=== PATIENT | female | born 1960 | race Caucasian/White ===

== ENCOUNTER 2022-10-08 07:58 | Outpatient (CLI) | payer BC, SELFPAY | END 2022-10-08 07:59 | disposition home or self-care (01) | LOC: NFLDREF 10-09 22:10 | PROVIDERS: PCP Family Medicine; Referring Provider Family Medicine; Visit Provider Family Medicine | DX: Z00.00 Encounter for general adult medical examination without abnormal findings (principal); E11.9 Type 2 diabetes mellitus without complications; I10 Essential (primary) hypertension; M54.81 Occipital neuralgia; Z13.6 Encounter for screening for cardiovascular disorders | CPT/HCPCS: 80053; 80061; 82043; 82570 ==

== ENCOUNTER 2022-11-27 15:30 | Outpatient (RCR) | payer BC, SELFPAY | END 2023-03-27 23:59 | disposition home or self-care (01) | PROVIDERS: PCP Family Medicine; Visit Provider Family Medicine | DX: M54.81 Occipital neuralgia (principal); Z51.89 Encounter for other specified aftercare | CPT/HCPCS: 97110; 97140; 97162; T1013 ==

== ENCOUNTER 2023-01-07 15:02 | Outpatient (CLI) | payer BC, SELFPAY ==
--- NOTE | 2023-01-07 15:40 | CRLHL7_ITS ---
For Patients: As a result of the Century Cures Act, medical imaging exams and procedure reports are released immediately into your electronic medical record. You may view this report before your referring provider. If you have questions, please contact your health care provider. BILATERAL SCREENING MAMMOGRAM WITH COMPUTER-AIDED DETECTION AND TOMOSYNTHESIS TECHNIQUE: CC and MLO views were obtained. These mammographic images have been obtained using full-field digital technique. These mammographic images were interpreted with the benefit of computer-aided detection. Breast Tomosynthesis was used in this interpretation. COMPARISON FILM: 01/03/22, 09/14/19. FINDINGS: There are scattered areas of fibroglandular density IMPRESSION: There is no radiographic evidence for malignancy. ASSESSMENT: BI-RADS Category 1: Negative RECOMMENDATION: Routine screening mammogram in 1 year. A lay language report of this examination will be provided to the patient. Randy Cali M.D. Diagnostic/Nuclear Medicine Radiologist [email or web address] CIELO/Dictated by: Randy Cali MD @ 01/08/2023 9:08:00 AM (Electronically Signed)
== END 2023-01-07 15:03 | disposition home or self-care (01) ==
LOC: MAMMO 15:02
PROVIDERS: PCP Family Medicine; Visit Provider Family Medicine
DX: Z12.31 Encounter for screening mammogram for malignant neoplasm of breast (principal)
CPT/HCPCS: 77063; 77067; T1013

== ENCOUNTER 2023-10-06 07:22 | Outpatient (CLI) | payer BC, SELFPAY | END 2023-10-06 07:23 | disposition home or self-care (01) | LOC: NFLDREF 10-08 11:31 | PROVIDERS: PCP Family Medicine; Referring Provider Family Medicine; Visit Provider Family Medicine | DX: E03.9 Hypothyroidism, unspecified (principal); E11.9 Type 2 diabetes mellitus without complications; E78.5 Hyperlipidemia, unspecified; I10 Essential (primary) hypertension; R53.83 Other fatigue; Z79.899 Other long term (current) drug therapy | CPT/HCPCS: 80053; 80061; 82607; 82728; 83540; 84439; 84443 ==

== ENCOUNTER 2023-11-03 10:09 | Outpatient (CLI) | payer BC, SELFPAY ==
--- OUTSIDE RECORDS SUMMARY | 2023-11-03 10:12 | XMS_ITS | Clinical Summary ---
Author Name Unknown Organization [facility] Address [place], [place] [address] Care Team Providers Care Airport Engineer Name Role Phone Pcp, No Primary Care Provider Unavailabl e Allergies Active Allergy Reactions Criticality Noted Date Comments Naproxen GI Upset,Intolerance-Can't Take 01/20 Medications Medication Sig Dispensed Refills Start Date End Date Status ASPIRIN 81 MG TAB take 1 tablet (81mg) by oral route once daily 03/10/2008 Active lancets (ACCU-CHEK FASTCLIX) Test 2-3 times per day. 20 Each prn 05/17/2013 Active insulin needles, disposable, (LITE TOUCH INSULIN PEN NEEDLES) 31 X 5/16 Indications:Type 2 diabetes mellitus with hyperglycemia (HC) For administering insulin at home. For lantus solostar disposable pen device 100 Each 3 02/09/2015 Active Diabetic ShoeIndications:Ty pe 2 diabetes mellitus with hyperglycemia (HC) As directed. 1 Each 0 12/13/2015 Active insulin syringe-needle U-100 (BD INSULIN SYRINGE ULTRA-FINE) 0.3 mL 31 gauge x 15/64 syrgIndications:Ty pe 2 diabetes mellitus without complication, without long-term current use of insulin (HC) As directed. For insulin administration 100 Syringe 12 04/24/2016 Active blood sugar diagnostic (ACCU-CHEK SMARTVIEW TEST STRIP) stripIndications:T ype 2 diabetes mellitus with hyperglycemia, with long-term current use of insulin (HC) Test 2-3 times per day. 100 Each 12 05/08/2016 Active acetaminophen (TYLENOL) 325 mg tablet Take by mouth every 4 hours if needed. Max acetaminophen dose: 4000mg in 24 hrs. 0 09/04/2016 Active glipiZIDE (GLUCOTROL) 10 mg tabletIndications: Type 2 diabetes mellitus without complication, unspecified snf insulin use status Take 1 tablet by mouth 2 times daily before meals. 180 tablet 2 09/04/2016 Active insulin NPH human recomb (NOVOLIN N) 100 unit/mL susp injectionIndicatio ns:Type 2 diabetes mellitus without complication, unspecified snf insulin use status Inject 10 Units subcutaneous every 12 hours. 1 Vial 12 09/04/2016 Active metFORMIN (GLUCOPHAGE) 1,000 mg tabletIndications: Type 2 diabetes mellitus without complication, unspecified snf insulin use status Take 1 tablet by mouth 2 times daily with meals. 180 tablet 2 09/04/2016 Active lisinopril (PRINIVIL; ZESTRIL) 30 mg tabletIndications: HTN (hypertension) Take 1 tablet by mouth once daily. Note dose change 90 tablet 2 09/04/2016 Active Active Problems Problem Noted Date Diagnosed Date Recurrent urinary tract infection 03/16/2016 Colon polyp 12/31/2013 Overview: Colonoscopy 12/2013 polyp repeat in 5 years Cervical back pain with evidence of disc disease 11/23/2013 Type 2 diabetes mellitus wit hout complication, without long-term current use of insulin 08/12/2008 HTN (hypertension) 08/12/2008 Overview: Updated by system to replace inactive record Dysthymic disorder 08/12/2008 Immunizations Name Administration Dates Next Due HepA-HepB (Twinrix) 04/12/2015,03/04/2014,2013 Influenza, IIV3 (Age >=3 years) 03/25/2012 Influenza, IIV4 04/09/2016,04/12/2015,04/06/2014 Tdap 11/23/2013 Family History Medical History Relation Name Comments Diabetes Father Diabetes Mother Other Mother kidney failure Cancer-colon Sister diagnosed at 45 yr Relation Name Status Comments Father Mother kidney failure Sister Social History Tobacco Use Types Packs/Day Years Used Date Smoking Tobacco: Never Smokeless Tobacco: Never Tobacco Cessation:Counseling Given: Yes Alcohol Use Standard Drinks/Week Comments No 0 (1 standard drink = 0.6 oz pur e alcohol) Sex and Gender Information Value Date Recorded Sex Assigned at Not on file Gender Identity Not on file Sexual Orientation Not on file Obstetrics History Para Term AB IAB SAB Ectopic Multiple Livin g Live Births 3 4 Date Outcome GA Total Labor Labor/2nd/3rd Weight Sex Delivery Anes PTL Kayli A1 A5 Name Cl in Last Filed Vital Signs Vital Sign Reading Time Taken Comments Blood Pressure 167/83 06/29/2023 5:54 PM TOOLER Pulse 62 06/29/2023 5:54 PM TOOLER Temperature 36.3 ??C (97.3 ??F) 06/29/2023 5:54 PM CS T Respiratory Rate 18 06/29/2023 5:54 PM TOOLER Oxygen Saturation 98% 06/29/2023 5:54 PM TOOLER Inhaled Oxygen Concentration - - Weight 59.9 kg (132 lb) 06/29/2023 5:53 PM TOOLER Height 149.4 cm (4' 10.82) 04/23/2017 10:16 AM CDT Body Mass Index 26.83 04/23/2017 10:16 AM CDT Plan of Treatment Health Maintenance Due Date Last Done Comments HIV for age 15-65 1973 Hepatitis C screening for ag e 18-79 1976 Zoster (shingles) series for age 50+ (1 of 2) 2008 Depression screening for age 12+ 10/18/2016 10/19/2015, 10/19/2015, 10/19/2015 Mammogram for age 45-75 04/22/2018 04/22/20 17, 04/16/2016, 04/12/2015, Additional history exists BMI (ht and wt on same day) for age 18+ 04/23/2018 04/23/2017, 09/04/2016, 07/04/2016, Additional history exists Colonoscopy through age 75 12/31/201812/31, 12/31/2013, 10/22/2001 Lipids for age 45-75 11/17/2022 11/17/2017, 09/04/2016, 10/19/2015, Additional history exists COVID-19 vaccine series ( season) 2023 08/02/2021, 11/10/2020, 10/14/2020 DEXA/DXA scan for age 65+ 10/26/2023 Pneumococcal series for age 65+ (1 of 1 - PCV) 10/26/2023 Tetanus booster 11/24/2023 11/23/2013 Influenza for age 65+ 03/21/2024 04/09/2016 , 04/12/2015, 04/06/2014, Additional history exists Tdap Completed 11/23/2013 Goals Goal Patient Goal Type Associated Problems Recent Progress Patient-Stated? Author BLOOD PRESSURE-MA INTAINS BP LESS THAN 130/80 Blood Pressure No Tammy Santos NP Procedures Procedure Name Priority Date/Time Associated Diagnosis Comments LIPID PANEL W REFLEX MEASURED LDL Routine 11/17/2017 8:28 AM CDT Type 2 diabetes mellitus without complication, without long-term current use of insulin (HC) XR MAMMO BILAT SCREENING Routine 04/22/2017 3:05 PM CDT Visit for screening mammogram from Last 3 Months or Most Recently Relevant to Health Maintenance Results * (ABNORMAL) LIPID PANEL W REFLEX MEASURED LDL (11/17/2017 8:28 AM CDT) CHOLESTEROL,TOTAL 162 100 - 199 mg/dL 11/17/2017 3:48 PM CDT [facility] TRIGLYCERIDES 163(H) <150 mg/dL 11/17/2017 3:48 PM CDT [facility] HDL CHOLESTEROL 39(L) >40 mg/dL 8 3:48 PM CDT [facility] NON-HDL CHOLESTEROL 123 <145 mg/dl 11/17/2017 3:48 PM CDT [facility] CHOL/HDL RATIO 4.15 <4.50 11/17/2017 3:48 PM CDT [facility] LDL CHOLESTEROL 90 <=130 mg/dL 11/17/2017 3:48 PM CDT [facility] PROVIDER ORDERED STATUS RANDOM 11/17/2017 3:48 PM CDT [facility] Blood BLOOD SPECIMEN / Unknown Venipuncture / Unknown 11/17/2017 8:28 AM CDT 11/17/2017 8:28 AM CDT Porsha Beltret DO CHEMISTRY [facility]AL LAB[facility]ATORY [address] [place] [address], [place] * XR MAMMO BILAT SCREENING (04/22/2017 3:05 PM CDT) Anatomical Region Laterality Modality BREASTS, Breast Left, Breast Right Bilateral Mammography Impressions 04/23/2017 12:29 PM CDT ??There is no radiographic evidence for malignancy. ??Recommend annual mammograms. A lay language report of this examination will be provided to the patient. MAMMOGRAM ASSESSMENT: ??ACR 2 Benign Narrative 04/23/2017 12:29 PM CDT XR MAMMO BILAT SCREENING [[id number]] CLINICAL HISTORY: ??This is an asymptomatic 56 y.o. patient. INDICATION FOR EXAM: Mammogram Screening. TECHNIQUE: CC & MLO views were obtained. ??This digital study was evaluated with the assistance of Computer-Aided Detection. COMPARISON FILMS: Yes 04/16/16 [facility] 04/12/15 [facility] FINDINGS: ??Mammographically, the breast tissue has scattered fibroglandular densities. ??No suspicious masses or microcalcifications. ?? Benign appearing calcifications within both breasts and Intramammary lymph node within right breast. Tammy Deal FLOORWORKER LASTING MAMMO from Last 3 Months or Most Recently Relevant to Health Maintenance Care Teams Airport Engineer Relationship Specialty Start Date End Date Pcp, No . PCP - General 06/26/18
--- NOTE | 2023-11-03 11:38 | W.ANESCHARGE ---
Anesthesia Charges Start Date/Time Anesthesia Start Date: 11/03/23 Anesthesia Start Time: 10:55 Stop Date/Time Anesthesia Stop Date: 11/03/23 Anesthesia Stop Time: 11:36
--- NOTE | 2023-11-03 11:47 | W.ANESCHARGE ---
Anesthesia Charges Start Date/Time Anesthesia Start Date: 11/03/23 Anesthesia Start Time: 10:55 Stop Date/Time Anesthesia Stop Date: 11/03/23 Anesthesia Stop Time: 11:36
== END 2023-11-03 10:10 | disposition home or self-care (01) ==
LOC: OP CLINIC 10:10
PROVIDERS: PCP Family Medicine; Visit Provider Surgery
DX: D50.9 Iron deficiency anemia, unspecified (principal); K44.9 Diaphragmatic hernia without obstruction or gangrene; Z80.0 Family history of malignant neoplasm of digestive organs
CPT/HCPCS: 00731; 00813; 43239; 45378; 45385; 88305; 88341; 88342; T1013; J2704

== ENCOUNTER 2024-01-05 13:45 | Outpatient (CLI) | payer BC, SELFPAY ==
--- OUTSIDE RECORDS SUMMARY | 2024-01-09 19:07 | XMS_ITS | Clinical Summary ---
Author Organization [facility] Address [place], [place] [address] Care Team Providers Care Solution Design And Analysis Manager Name Role Phone Pcp, No Primary Care [...] Type 2 diabetes mellitus without complication, unspecified intermodal customer service insulin use status Take 1 tablet by mouth 2 times daily before meals. 180 tablet 2 09/04/2016 Active insulin NPH human recomb (NOVOLIN N) 100 unit/mL susp injectionIndicatio ns:Type 2 diabetes mellitus without complication, unspecified intermodal customer service insulin use status Inject 10 Units subcutaneous every 12 hours. 1 Vial 12 09/04/2016 Active metFORMIN (GLUCOPHAGE) 1,000 mg tabletIndications: Type 2 diabetes mellitus without complication, unspecified intermodal customer service insulin use status Take 1 tablet by [...] to replace inactive record Dysthymic disorder 08/12/2008 Encounters Date Type Department Care Team Description 11/03/[address] [facility] [phone] Unknown, Doctor from Last 3 Months Immunizations Name Administration Dates Next Due HepA-HepB [...] Outcome GA Total Labor Labor/2nd/3rd Weight Sex Type Anes PTL Kayli A1 A5 Name Clin Last Filed Vital Signs Vital Sign Reading Time Taken Comments Blood Pressure 167/83 06/29/2023 5:54 PM PARACHUTE LINE TIER Pulse 62 06/29/2023 5:54 PM [employer] TIER Temperature 36.3 ??C (97.3 ??F) 06/29/2023 5:54 PM CS T Respiratory Rate 18 06/29/2023 5:54 PM [employer] TIER Oxygen Saturation 98% 06/29/2023 5:54 PM [employer]ACH[employer] TIER Inhaled Oxygen Concentration - - Weight 59.9 kg (132 lb) 06/29/2023 5:53 PM [employer]ACHUTE [employer] TIER Height 149.4 cm (4' 10.82) 04/23/2017 10:16 [...] Procedure Name Priority Date/Time Associated Diagnosis Comments LAB TRACKING EVENT Routine 11/03/2023 11 :03 AM CDT PATH TISSUE EXAM Routine 11/03/2023 11:0 3 AM CDT LIPID PANEL W REFLEX MEASURED LDL Routine 11/17/2017 8:28 AM CDT Type 2 diabetes mellitus without complication, without long-term current use of insulin (HC) XR MAMMO BILAT SCREENING Routine 04/22/2017 3:05 PM CDT Visit for screening mammogram from Last 3 Months or Most Recently Relevant to Health Maintenance Results * LAB TRACKING EVENT (11/03/2023 11:03 AM CDT) Other (Other) Client Collect / Unknown 11/03/2023 11:03 AM CDT 11/03/2023 8:46 PM CDT Doctor Unknown LAB BILL ONLY [facility] [address] [place] [id number] * PATH TISSUE EXAM (11/03/2023 11:03 AM CDT) Case Report Pathology Report ?Case: [id number] ? Authorizing Provider: ??Unknown, Doctor ?Collected: ? 11/03/2023 1103 ? Ordering Location: ? [facility] ?Received: ?11/03/2023 2107 ? Pathologist: ? Randy Hutchins MD ? Specimen: ?Stomach Biopsy ? 4 2:52 PM CDT [facility] Final Diagnosis A) STOMACH, BIOPSY: 1. 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 Negative for Helicobacter (Helicobacter immunohistochemistry negative) 3. Negative for dysplasia 4 2:52 PM CDT [facility] Comment The histologic findings are consistent with autoimmune gastritis. The autoimmune mechanisms in this type of atrophic gastritis are directed against gastric body (corpus) glands, resulting in progressive hypochlorhydria and hypergastrinemia and decreased secretion of intrinsic factor. This form of gastritis is associated with an increased risk of gastric adenocarcinoma and gastric carcinoid tumors; however, management of these risks remains uncertain and needs to be individualized. Dysplasia, when present, further increases the risk of gastric adenocarcinoma. These patients are also at increased risk for pernicious anemia and iron deficiency anemia. 4 2:52 PM CDT [facility] Clinical Information Ms. Reyes is a 63 y.o. with suspected upper gastrointestinal bleeding and patient with unexplained iron deficiency anemia. Upper endoscopy was essentially normal. 4 2:52 PM CDT [facility] Gross Description A) Received in formalin are 3 oliver mucosal fragments averaging 3 mm in greatest dimension, which are entirely submitted in one cassette. It is labeled with the patient's name and designated random stomach. Martine Zhao 11/03/2023 9:08 PM 4 2:52 PM CDT [facility] Microscopic Description The final diagnosis is based on microscopic examination of appropriate sections of all specimens. A) The findings include: ?? Sampling: ?Antrum and body ?? Distribution: ?Body ?? Activity: ?Mild ?? Chronic inflammation: ??Moderate ?? Helicobacter: ?Absent ?? Intestinal metaplasia: Mild ?? Atrophy: ? Mild ?? Pyloric metaplasia: ?Marked ?? ECL Cell hyperplasia: ??Mild Immunohistochemistry for gastrin and chromogranin were reviewed to evaluate for pyloric metaplasia and ECL cell hyperplasia respectively. 4 2:52 PM CDT [facility] Additional Information Interpreted at [facility] - [address] [facility] [[email or web address]] [address] [address] 4 2:52 PM CDT [facility] Other (Stomach Biopsy) 11/03/2023 11:03 AM CDT 11/03/2023 9:07 PM CDT Doctor Unknown PATHOLOGY/CYTOLOGY [facility] [address] [place] [address], * (ABNORMAL) LIPID PANEL W REFLEX MEASURED LDL (11/17/2017 8:28 AM CDT) CHOLESTEROL,TOTAL 162 100 - 199 mg/dL 11/17/2017 3:48 PM CDT [facility] TRIGLYCERIDES 163(H) <150 mg/dL 11/17/2017 3:48 PM CDT [facility] HDL CHOLESTEROL 39(L) >40 mg/dL 8 3:48 PM CDT [facility] NON-HDL CHOLESTEROL 123 <145 mg/dl 11/17/2017 3:48 PM CDT [facility] CHOL/HDL RATIO 4.15 <4.50 11/17/2017 3:48 PM CDT [facility] LDL CHOLESTEROL 90 <=130 mg/dL 11/17/2017 3:48 PM CDT [facility] TR[facility] PROVIDER ORDERED STATUS RANDOM 11/17/2017 3:48 PM CDT [facility] Blood BLOOD SPECIMEN / Unknown Venipuncture / Unknown 11/17/2017 8:28 AM CDT 11/17/2017 8:28 AM CDT Porsha Beltret DO CHEMISTRY Performing Organization Address City/State/[facility] Co de Phone Number [facility] [address] [place] [address], [place] * XR MAMMO BILAT SCREENING (04/22/2017 3:05 PM CDT) Anatomical Region Laterality Modality BREASTS, Breast Left, Breast Right Bilateral Mammography Impressions 04/23/2017 12:29 PM CDT ??There is no radiographic evidence for malignancy. ??Recommend annual mammograms. A lay language report of this examination will be provided to the patient. MAMMOGRAM ASSESSMENT: ??ACR 2 Benign Narrative 04/23/2017 12:29 PM CDT XR MAMMO BILAT SCREENING [[id number]] CLINICAL HISTORY: ??This is an asymptomatic 56 y.o. patient. INDICATION FOR EXAM: Mammogram Screening. TECHNIQUE: CC & MLO views were obtained. ??This digital study was evaluated with the assistance of Computer-Aided Detection. COMPARISON FILMS: Yes 04/16/16 [facility] 04/12/15 [facility] [place] FINDINGS: ??Mammographically, the breast tissue has scattered fibroglandular densities. ??No suspicious masses or microcalcifications. ?? Benign appearing calcifications within both breasts and Intramammary lymph node within right breast. Tammy Deal [employer] CAR [employer]IVER MAMMO from Last 3 Months or Most Recently Relevant to Health Maintenance Care Teams Solution Design And Analysis Manager Relationship Specialty Start Date End Date Pcp, No . PCP - General 06/26/18
--- OUTSIDE RECORDS SUMMARY | 2024-01-09 19:07 | XMS_ITS | Continuity of Care Document ---
Author Organization [facility] Address [address] [address] [place] [address] Phone Care Team Providers Care Gauge And Instrument Inspector Name Role Phone Doug Dunlap MD Unavailable Unavailabl e Allergies, Adverse Reactions, Alerts Substance Reaction Status Criticality No Known Allergies Active No Inform ation Medications Medication Instructions Dosage Effective Dates (start - stop) Status Comments Injectafer 50 mg iron/mL intravenous solution Administer 2 doses of 750mg Injectafer by IV route at least 7 days apart over at least 15 minutes - Active metformin 1,000 mg tablet take 1 tablet by oral route 2 times every day with morning and evening meals 1000 MG - Active lisinopril 10 mg tablet take 1 tablet by oral route every day 10 MG - Active VITAMIN B-12 (unknown strength) take 3 tablets every day Not Available - Active Jardiance 10 mg tablet take 1 tablet by oral route every day in the morning 10 MG - Active amlodipine 5 mg tablet take 1 tablet by oral route every day 5 MG - Active Humalog KwikPen (U-100) Insulin 100 unit/mL subcutaneous inject by subcutaneous route once per prescriber's instructions. Insulin dosing requires individualization.; takes 8 units 2 times every day Not Available - Active Vazalore 81 mg capsule take 1 capsule by oral route every day 81 MG - Active simvastatin 10 mg tablet take 1 tablet by oral route every day in the evening 10 MG - Active Procedures Procedure Date Injectafer, 1 mg Iv Infus Therap/dx-by Phys; To Injectafer, 1 mg Iv Infus Therap/dx-by Phys; To Office Cons New/estab Mod Routine Serum Collection Advance Directives Directive Yes / No Effective Date File Name No Information Encounters Encounter Description Practice Location Reason(s) For Visit Diagnoses Date Provider Providers Copied on Encounter [facility], [address] [address], [place], [place], [id number], [place] tel:[phone] [facility] No Information 4 Flakito Camacho. [facility], [address], [id number] , [place]. tel: [phone] [facility], [address] [address], [place], [place], [address], [place] tel: [phone] [facility] Iron deficiency anemia, unspecified 4 Sheela Moss. [address] [facility], [address], [id number] , [place]. tel: [phone] Referring Provider: Referral Self, USE FOR SELF REFERRALS. [facility], [address] [address], [place], [place], [id number], [place] tel:[phone] [facility] Iron deficiency anemia, unspecified 4 Bassam Sanon. [address] [facility], [address], [id number] , [place]. tel: [phone] [facility], [address] [address], [place], [place], [address], [place] tel:[phone] [facility] Iron deficiency anemia, unspecified 4 Prateek Elmore. [address] [facility], [address], [id number] , [place]. tel: [phone] Referring Provider: Referral Self, USE FOR SELF REFERRALS. [facility], [address] [address], [place], [place], [address], [place] tel:[phone] [facility] Iron deficiency anemia, unspecified iron deficiency anemia type 4 Bassam Sanon. [address] [facility], [facility] [address], [place], [place], [id number] , [place]. [phone] [facility], [address] [address], [place], [place], [address], [place] [phone] [place] [facility] deficiency anemia, unspecified iron deficiency anemia typeAutoimmune gastritis 4 Bassam Sanon. [address] [facility], [facility] [address], [place], [place], [address] , [place]. [phone] Office Cons New/estab Mod [facility], [address] [address], [place], [place], [address], [place] [phone] [place] [facility] Symptoms or Concerns (chief complaint) Autoimmune gastritisIron deficiency anemia, unspecified iron deficiency anemia type 4 Bassam Sanon. [address] [facility], [facility] [address], [place], [place], [address] , [place]. [phone] Referring Provider: Lilia Benitez MD, [address] [place], [address]. tel:[phone] [facility], [address] [address], [place], [place], [address], [place] [phone] [facility] No Information 4 Flakito Camacho. [address] [facility], [facility] [address], [place], [place], [address] , [place]. [phone] Family History Family Member Type Diagnosis Age At Onset No Information Immunizations Vaccine Date Status Comments Afluria Qd administered Note: [facility] bi-directional interface ; Source: Other Registry SARS-COV-2 (COVID-19) vaccin e, mRNA, spike protein, LNP, preservative free, 30 mcg/0.3mL dose administered Note: [facility] bi-direct ional interface ; Source: Other Registry Seasonal, quadrivalent, recombinant, injectable influenza vaccine, preservative free administered Note: [facility] bi-direct ional interface ; Source: Other Registry SARS-COV-2 (COVID-19) vaccin e, mRNA, spike protein, LNP, preservative free, 30 mcg/0.3mL dose administered Note: [facility] bi-direct ional interface ; Source: Other Registry SARS-COV-2 (COVID-19) vaccin e, mRNA, spike protein, LNP, preservative free, 30 mcg/0.3mL dose administered Note: [facility] bi-direct ional interface ; Source: Other Registry zoster vaccine recombinant administered N ote: [facility] bi-directional interface ; Source: Other Registry Seasonal, quadrivalent, recombinant, injectable influenza vaccine, preservative free administered Note: [facility] bi-direct ional interface ; Source: Other Registry zoster vaccine recombinant administered N ote: [facility] bi-directional interface ; Source: Other Registry Pneumovax 23 administered Note: [facility] bi-d irectional interface ; Source: Other Registry Influenza administered Note: [facility] bi-d irectional interface ; Source: Other Registry measles, mumps and rubella v irus vaccine administered Note: [facility] bi-direct ional interface ; Source: Other Registry tetanus toxoid, reduced diphtheria toxoid, and acellular pertussis vaccine, adsorbed administered Note: [facility] b i-directional interface ; Source: Other Registry varicella virus vaccine administered Note : [facility] bi-directional interface ; Source: Other Registry Afluria Qd administered Note: [facility] bi-directional interface ; Source: Other Registry Twinrix administered Note: [facility] bi-d irectional interface ; Source: Other Registry Afluria Qd administered Note: [facility] bi-directional interface ; Source: Other Registry Afluria Qd administered Note: [facility] bi-directional interface ; Source: Other Registry Twinrix administered Note: [facility] bi-d irectional interface ; Source: Other Registry Twinrix administered Note: [facility] bi-d irectional interface ; Source: Other Registry tetanus toxoid, reduced diphtheria toxoid, and acellular pertussis vaccine, adsorbed administered Note: [facility] b i-directional interface ; Source: Other Registry influenza virus vaccine, unspecified formulation administered Note: [facility] bi-di rectional interface ; Source: Other Registry Influenza, seasonal, injectable administe red Note: [facility] bi- directional interface ; Source: Other Registry tetanus toxoid, reduced diphtheria toxoid, and acellular pertussis vaccine, adsorbed administered Note: [facility] b i-directional interface ; Source: Other Registry Influenza, seasonal, injectable administe red Note: [facility] bi- directional interface ; Source: Other Registry Payers Payer name Insurance type Covered alliance party ID Authoriza tibao(s) [facility] [id number] Social History Type Description Quantity Date Captured Comments Alcohol Use Details Unknown Caffeine Use Details Unknown Tobacco Use Status No Information Smoking Status No Information Sex Female Chief Complaint And Reason For Visit No Information Reason For Referral Reason For Referral No Information Plan Of Treatment Date Type Action Status Referral Ordered: Iron/TIBC Appointment date/timeframe: 01/26/2024 ordered Referral Ordered: HGB, Whole Blood Appointment date/timeframe: 01/26/2024 ordered Referral Ordered: Administer 2 doses of 750mg Injectafer by IV route at least 7 days apart over at least 15 minutes ordered Appointment Idania Pugh BOOKED Appointment Idania Pugh BOOKED History Of Present Illness Encounter Date Complaint History Of Prese nt Illness GI Symptoms or Concerns I had th e pleasure of seeing Idania Verma today in clinic for consultation at the request of Dr Lilia Benitez for evaluation of right upper quadrant abdominal pain.Patient is here with her daughter and a sales process manager.Patient is a pleasant 63yo F with recent diagnosis of anemia and autoimmune gastritis who presents for consultation and second opinion. Per patient and records, She was recently diagnosed with iron-deficiency anemia and vitamin B12 deficiency. She subsequently had an upper endoscopy and colonoscopy in October 2023 which was remarkable for autoimmune gastritis. H pylori test was negative and she did not have any dysplasia on random stomach biopsies. Her colonoscopy was otherwise unremarkable. She subsequently follow-up with her physician at [facility] regarding her diagnosis. She was told that given her EGD findings, she is at increased risk for gastric cancer or carcinoid carcinomas. She was also started on iron supplementation with IV iron and oral vitamin B12. Currently, she states that she has symptoms of indigestion and bloating whenever she eats spicy foods, milk and heavy foods including meat and fatty foods. Occasionally, she would have nausea sensation as well. She denies any GI bleeding, weight loss, changes in bowel habits. She does have family history of colon cancer in her sister and also says that her mother had hx of gastric cancer. No tobacco, alcohol or illicit drug use. Functional Status Date Functional Assessmen t No Information Instructions Date Instruction Additional Infor patsy It was a pleasure me eting you today, as we discussed in clinic: We will plan to obtain some labs today to further evaluate your autoimmune gastritis and anemia. If your iron and vitamin B12 levels are still low. We will plan for you get infusions.You will need a repeat upper endoscopy in 2-3 years and a colonoscopy in 5 years. Follow up in clinic in 2-3 months. Related to Autoimmune gastritis Assessments Type Assessment Date No Information Patient Care Teams Name Effective Dates (start - stop) Status Members No Information
== END 2024-01-05 13:46 | disposition home or self-care (01) ==
LOC: NFLDREF 01-09 19:06
PROVIDERS: PCP Family Medicine; Referring Provider Family Medicine; Visit Provider Family Medicine
DX: D50.9 Iron deficiency anemia, unspecified (principal); I10 Essential (primary) hypertension; R79.89 Other specified abnormal findings of blood chemistry; D51.9 Vitamin B12 deficiency anemia, unspecified
CPT/HCPCS: 80053; 82607; 82728; 83540; 83550; 84443

== ENCOUNTER 2024-04-09 07:35 | Outpatient (CLI) | payer BC, SELFPAY ==
--- OUTSIDE RECORDS SUMMARY | 2024-04-09 07:37 | XMS_ITS | Continuity of Care Document ---
Author Organization [facility] Address [address] [address] [place] [address] Phone Care Team Providers Care Finish Remover Name Role Phone Bassam RUANO, Fab Unavailable Unavailable Allergies, Adverse Reactions, Alerts Substance Reaction Status Criticality lactose Active No Information Medications Medication Instructions Dosage Effective Dates (start [...] once per prescriber's instructions. Insulin dosing requires individualization .; takes 8 units 2 times every day Not Available - Active Vazalore 81 mg capsule take 1 capsule by oral route every day 81 MG - Active simvastatin 10 mg tablet take 1 tablet by oral route every day in the evening 10 MG - Active nitrofurantoin macrocrystal 100 mg capsule take 1 capsule by oral route every 12 hours for 7 days with food 100 MG - No Longer Active Procedures Procedure Date Offic/outpt E&m Estab Mod-hi 2 Routine Serum Collection Routine Serum Collection Injectafer, 1 mg Iv Infus Therap/dx-by Phys; To Injectafer, 1 mg Iv Infus Therap/dx-by Phys; To Office Cons New/estab Mod Routine Serum Collection Advance Directives Directive Yes / No Effective Date File Name No Information Encounters Encounter Description Practice Location Reason(s) For Visit Diagnoses Date Provider Providers Copied on Encounter [facility], [address] [address], [place], [id number], [place] tel:[phone] [facility] No Information 4 Bassam Sanon. [address] [place] [address], [place] [address], [facility], [place], [id number] , [place]. tel:[phone] Offic/outpt E&m Estab Mod-hi 2 [facility], [address] [address], [place], [id number], [place] tel:[phone] [facility] GI Symptoms or Concerns (chief complaint) Autoimmune gastritisIron deficiency anemia, unspecifiedIrregula r bowel habitsDysuria 4 Bassam Sanon. [address] [facility], [facility] [address], [place], [place], [address] , [place]. tel:[phone] Referring Provider: Referral Self, USE FOR SELF REFERRALS. [facility], [address] [address], [place], [id number], [place] tel:[phone] [facility] No Information 4 Bassam Sanon. [address] [facility], [facility] [address], [place], [place], [address] , [place]. tel:[phone] [facility], [address] [address], [place], [place], [address], [place] tel:[phone] [facility] Iron deficiency anemia, unspecified 4 Sheela Moss. [address] [facility], [address], [place], [place], [id number] , [place]. tel: [phone] Referring Provider: Referral Self, USE FOR SELF REFERRALS. [facility], [address] [address], [place], [place], [address], [place] tel:[phone] [facility] [place] Iron deficiency anemia, unspecified 4 Sheela Moss. [address] [facility], [address], [place], [place], [address] , [place]. tel: [phone] Referring Provider: Referral Self, USE FOR SELF REFERRALS. [facility], [address] [address], [place], [place], [address], [place] tel:[phone] [facility] Iron deficiency anemia, unspecified 4 Bassam Sanon. [address] [facility], [address], [place], [place], [address] , [place]. tel: [phone] [facility], [address] [address], [place], [address], [place] tel:[phone] [facility] Iron deficiency anemia, unspecified 4 Prateek Elmore. [address] [facility], [address], [place], [place], [address] , [place]. tel: [phone] Referring Provider: Referral Self, USE FOR SELF REFERRALS. [facility], [address] [address], [place], [address], [place] tel:[phone] [facility] [place] Iron deficiency anemia, unspecified iron deficiency anemia type 4 Bassam Sanon. [address] [facility], [address], [place], [place], [address] , [place]. tel: [phone] [facility], [address] [address], [place], [address], [place] tel:[phone] [facility] Iron deficiency anemia, unspecified iron deficiency anemia typeAutoimmune gastritis 4 Bassam Sanon. [address] [facility], [facility] [address], [place], [place], [address] , [place]. [phone] Office Cons New/estab Mod [facility], [address] [address], [place], [address], [place] tel:[phone] [facility] GI Symptoms or Concerns (chief complaint) Autoimmune gastritisIron deficiency anemia, unspecified iron deficiency anemia type 4 Bassam Sanon. [address] [facility], [address], [place], [place], [address] , [place]. [phone] Referring Provider: Lilia Benitez MD, [address] [place] [address], [address]. tel:[phone] [facility], [address] [address], [place], [address], [place] tel:[phone] [facility] No Information 4 Flakito Camacho. [address] [facility], [address], [place], [place], [address] , [place]. [phone] Family History Family Member Type Diagnosis Age At Onset Sister Problem Cancer, colon Father Problem Diabetes mellitus Mother Problem Diabetes mellitus Immunizations Vaccine Date Status Comments Afluria Qd administered Note: [facility] bi-directional interface ; Source: Other Registry SARS-COV-2 (COVID-19) vaccin e, mRNA, spike protein, LNP, preservative free, 30 mcg/0.3mL dose administered Note: [facility] bi-direct ional interface ; Source: Other Registry Influenza, recombinant, quadrivalent, injectable, preservative free administered Note: [facility] bi-direct ional interface ; Source: Other Registry Seasonal, quadrivalent, recombinant, injectable influenza vaccine, preservative free administered Note: [facility] bi-direct ional interface ; Source: Other Registry SARS-COV-2 (COVID-19) vaccin e, mRNA, spike protein, LNP, preservative free, 30 mcg/0.3mL dose administered Note: [facility] bi-direct ional interface ; Source: Other Registry SARS-COV-2 (COVID-19) vaccin e, mRNA, spike protein, LNP, preservative free, 30 mcg/0.3mL dose administered Note: [facility] bi-direct ional interface ; Source: Other Registry Influenza, recombinant, quadrivalent, injectable, preservative free administered Note: [facility] bi-direct ional [...] rectional interface ; Source: Other Registry Influenza, split virus, trivalent, injectable, contains preservative administered Note: [facility] bi-direct ional interface ; Source: Other Registry Influenza, seasonal, injectable administe red Note: [facility] bi- directional interface ; Source: Other Registry tetanus toxoid, reduced diphtheria toxoid, and acellular pertussis vaccine, adsorbed administered Note: [facility] b i-directional interface ; Source: Other Registry Influenza, split virus, trivalent, injectable, contains preservative administered Note: [facility] bi-direct ional interface ; Source: Other Registry Influenza, seasonal, injectable administe red Note: [facility] bi- directional interface ; Source: Other Registry Payers Payer name Insurance type Covered green party ID Authoriza tion(s) [facility] [id number] Social History Type Description Quantity Date Captured [...] apart over at least 15 minutes ordered History Of Present Illness Encounter Date Complaint History Of Prese nt Illness GI Symptoms or Concerns Idania M. Eric Verma is a pleasant 63-year-old female with history of hypertension, diabetes, autoimmune gastritis, iron deficiency anemia who presents to clinic today for follow-up.She is accompanied by a wolf hunter today.I initially saw patient in November 2019 for for diagnosis of autoimmune gastritis and anemia. She had just had an upper endoscopy and colonoscopy in October which showed autoimmune gastritis with negative H. pylori, and otherwise unremarkable colonoscopy. Labs at last clinic visit showed positive antiparietal cell antibody, borderline low hemoglobin at 11.1, borderline low iron levels and low iron saturation. She was subsequently given IV Injectafer and repeat labs in January showed improvement in both hemoglobin level and iron levels.Today, she reports that she is feeling well but does report having irregular bowel habits. She reports that sometimes after meals, she would have intermittent stomach aches and also loose to watery bowel movements. There are also days where she feels constipated. She denies any GI bleeding, weight loss, nausea or vomiting. In the last few days, she has also developed symptoms of urinary burning and frequency. She denies any fevers, chills, flank pain or hematuria. She denies any prior urinary tract infections. She does have family history of colon cancer in her sister and mother with history of gastric cancer. She denies any NSAID use, tobacco, alcohol or illicit drug use.I spent about 20 minutes of the visit for face to face with pt and 10 minutes for ordering tests and dictation. -2023 GI Symptoms or Concerns I had th e pleasure of seeing Idania Verma today in clinic for consultation at the request of Dr Lilia Benitez for evaluation of right upper quadrant abdominal pain.Patient is here with her daughter and a wolf hunter.Patient is a pleasant 63yo F with recent [...] She subsequently follow-up with her physician at [facility] regarding her diagnosis. She was told that [...] Assessmen t No Information Instructions Date Instruction Adalid Reyr patsy It was a pleasure me eting you today, as we discussed in clinic:We will check an urinalysis for urinary tract infection given you are having dysuria symptoms.I would also like to check your iron levels and blood counts again today.For your irregular bowel habits, please try fiber supplement such as Metamucil or Citrucel. You can take them once per day to help regulate your bowels.Follow-up in clinic in 3 to 4 months. Related to Autoimmune gastritis It was a pleasure me eting you [...]
--- OUTSIDE RECORDS SUMMARY | 2024-04-09 07:37 | XMS_ITS | Clinical Summary ---
Author Organization [facility] Address [place], [place] [address] Care Team Providers Care Manager Of Digital Name Role Phone Pcp, No Primary Care [...] Type 2 diabetes mellitus without complication, unspecified intermediate insulin use status Take 1 tablet by mouth 2 times daily before meals. 180 tablet 2 09/04/2016 Active insulin NPH human recomb (NOVOLIN N) 100 unit/mL susp injectionIndicatio ns:Type 2 diabetes mellitus without complication, unspecified intermediate insulin use status Inject 10 Units subcutaneous every 12 hours. 1 Vial 12 09/04/2016 Active metFORMIN (GLUCOPHAGE) 1,000 mg tabletIndications: Type 2 diabetes mellitus without complication, unspecified keno terminal operator insulin use status Take 1 tablet by mouth 2 times daily with meals. 180 tablet 2 09/04/2016 Active lisinopril (PRINIVIL; ZESTRIL) 30 mg tabletIndications: HTN (hypertension) Take 1 tablet by mouth once daily. Note dose change 90 tablet 2 09/04/2016 Active Active Problems Problem Noted Date Diagnosed Date Recurrent urinary tract infection 03/16/2016 Colon polyp 12/31/2013 Overview (12/31/2013): Colonoscopy 12/2013 polyp repeat in 5 years Cervical back pain with evidence of disc disease 11/23/2013 Type 2 diabetes mellitus wit hout complication, without long-term current use of insulin 08/12/2008 HTN (hypertension) 08/12/2008 Overview (10/03/2009): Updated by system to replace inactive record [...] Comments Blood Pressure 167/83 06/29/2023 5:54 PM CLOSET ORGANIZER Pulse 62 06/29/2023 5:54 PM CLOSET ORGANIZER Temperature 36.3 ??C (97.3 ??F) 06/29/2023 5:54 PM CS T Respiratory Rate 18 06/29/2023 5:54 PM CLOSET ORGANIZER Oxygen Saturation 98% 06/29/2023 5:54 PM CLOSET ORGANIZER Inhaled Oxygen Concentration - - Weight 59.9 kg (132 lb) 06/29/2023 5:53 PM CLOSET ORGANIZER Height 149.4 cm (4' 10.82) 04/23/2017 10:16 [...] 11/17/2022 11/17/2017, 09/04/2016, 10/19/2015, Additional history exists DEXA/DXA scan for age 65+ 10/26/2023 Pneumococcal series for age 65+ (1 of 1 - PCV) 10/26/2023 Tetanus booster 11/24/2023 11/23/2013 COVID-19 vaccine series ( season) 2024 08/02/2021, 11/10/2020, 10/14/2020 Influenza for age 65+ 03/21/2024 04/09/2016 , [...] - 199 mg/dL 11/17/2017 3:48 PM CDT [facility] TRIGLYCERIDES 163(H) <150 mg/dL 11/17/2017 3:48 PM CDT [facility] HDL CHOLESTEROL 39(L) >40 mg/dL 8 3:48 PM CDT [facility] NON-HDL CHOLESTEROL 123 <145 mg/dl 11/17/2017 3:48 PM CDT [facility] CHOL/HDL RATIO 4.15 <4.50 11/17/2017 3:48 PM CDT [facility] LDL CHOLESTEROL 90 <=130 mg/dL 11/17/2017 3:48 PM CDT [facility] PROVIDER ORDERED STATUS RANDOM 11/17/2017 3:48 PM CDT [facility] Blood BLOOD SPECIMEN / Unknown Venipuncture / Unknown 11/17/2017 8:28 AM CDT 11/17/2017 8:28 AM CDT Porsha Turner DO CHEMISTRY [facility] [address] [place] [address], [place] * XR MAMMO BILAT SCREENING (04/22/2017 3:05 PM CDT) Anatomical Region Laterality Modality BREASTS, Breast Left, Breast Right Bilateral Mammography Impressions 04/23/2017 12:29 PM CDT ??There is no radiographic evidence for malignancy. ??Recommend annual mammograms. A lay language report of this examination will be provided to the patient. MAMMOGRAM ASSESSMENT: ??ACR 2 Benign Narrative 04/23/2017 12:29 PM CDT XR MAMMO BILAT SCREENING [[id number]] CLINICAL HISTORY: ??This is an asymptomatic 56 y.o. patient. INDICATION FOR EXAM: Mammogram Screening. TECHNIQUE: CC & MLO views were obtained. ??This digital study was evaluated with the assistance of Computer-Aided Detection. COMPARISON FILMS: Yes 04/16/16 [facility] 04/12/15 [facility] FINDINGS: ??Mammographically, the breast tissue has scattered fibroglandular densities. ??No suspicious masses or microcalcifications. ?? Benign appearing calcifications within both breasts and Intramammary lymph node within right breast. Tammy Deal MUD MIXER MAMMO from Last 3 Months or Most Recently Relevant to Health Maintenance Care Teams Manager Of Digital Relationship Specialty Start Date End Date Pcp, No . PCP - General 06/26/18
== END 2024-04-09 07:36 | disposition home or self-care (01) ==
LOC: NFLDREF 07:36
PROVIDERS: PCP Family Medicine; Visit Provider Family Medicine
DX: R39.9 Unspecified symptoms and signs involving the genitourinary system (principal)
CPT/HCPCS: 87086

== ENCOUNTER 2024-07-05 07:35 | Outpatient (CLI) | payer BC, SELFPAY | END 2024-07-05 07:36 | disposition home or self-care (01) | LOC: NFLDREF 18:14 | PROVIDERS: PCP Family Medicine; Referring Provider Family Medicine; Visit Provider Family Medicine | DX: I10 Essential (primary) hypertension (principal); E11.29 Type 2 diabetes mellitus with other diabetic kidney complication; R80.9 Proteinuria, unspecified; Z79.4 Long term (current) use of insulin | CPT/HCPCS: 80053; 82043; 82570 ==

== ENCOUNTER 2024-09-29 14:51 | Outpatient (CLI) | payer BC, SELFPAY ==
--- NOTE | 2024-09-29 15:00 | CRLHL7_ITS ---
For Patients: As a result of the Century Cures Act, medical imaging exams and procedure reports are released immediately into your electronic medical record. You may view this report before your referring provider. If you have questions, please contact your health care provider. BILATERAL SCREENING MAMMOGRAM WITH COMPUTER-AIDED DETECTION AND TOMOSYNTHESIS TECHNIQUE: CC and MLO views were obtained. These mammographic images have been obtained using full-field digital technique. These mammographic images were interpreted with the benefit of computer-aided detection. Breast Tomosynthesis was used in this interpretation. COMPARISON FILM: 01/07/23, 01/03/22, 09/14/19. FINDINGS: There are scattered areas of fibroglandular density. IMPRESSION: There is no radiographic evidence for malignancy. ASSESSMENT: BI-RADS Category 2: Benign RECOMMENDATION: Routine screening mammogram in 1 year. A lay language report of this examination will be provided to the patient. Sohail Briscoe M.D. Diagnostic Radiologist [email or web address] SP/Dictated by: Sohail Briscoe MD @ 09/30/2024 8:28:00 AM (Electronically Signed)
--- NOTE | 2024-09-29 15:30 | CRLHL7_ITS ---
For Patients: As a result of the Century Cures Act, medical imaging exams and procedure reports are released immediately into your electronic medical record. You may view this report before your referring provider. If you have questions, please contact your health care provider. XR DXA BONE MINERAL DENSITY (BMD) Current height (in): 59.0. Weight (lb): 128.0. Menopause age: 43. Ethnicity: White. Reason for exam: Asymptomatic menopausal state. 1. Have you had a previous hip or vertebral fracture? No. 2. Have you had any fractures during your adult life which did not result from significant trauma (e.g., auto accident)? No. 3. Did either of your parents have a hip fracture? No. 4. Do you smoke? No. 5. Have you ever taken Glucocorticoids? No. 6. Do you have rheumatoid arthritis? No. 7. Do you have secondary osteoporosis? No. 8. Do you drink 3 or more alcoholic drinks per day? No. 9. Are you being treated for osteoporosis? No. 10. Have you ever taken any of the following medications: Actonel, Evista, Fosamax, Miacalcin, Reclast, Boniva, Forteo, HRT (i.e. estrogen/hormone therapy), Protelos, Prolia, Vitamin D, Calcium, other ??? please specify. ANSWER: No. 11. Do you have any of the following medical conditions: Anorexia or bulimia, asthma or emphysema, end stage renal disease, hyperparathyroidism, any seizure disorders, cancer, inflammatory bowel diseases, hysterectomy, other ??? please specify. ANSWER: Yes, hysterectomy. 12. What was your maximum height (inches)? 59. 13. Do you perform weight bearing exercise regularly? Yes. 14. Do you regularly consume dairy products? Yes. 15. Do you drink caffeinated beverages? Yes. 16. At what age did your period start? 14. 17. Are you premenopausal? No. 18. How many full-term pregnancies have you had? 3. 19. Have you ever missed your period for more than 6 months in a row (not including or menopause)? No. TECHNIQUE: Bone mineral density study was performed using the [employer]. FINDINGS: The results of the study expressed as bone mineral density (BMD) are as follows: Lumbar spine L1 to L3: BMD: 0.962 g/cm2. T-score: -0.5. Z-score: 1.3 Neck Left: BMD: 1.005 g/cm2. T-score: 1.4. Z-score: 3.0 Right: BMD: 0.992 g/cm2. T-score: 1.3. Z-score: 2.8 Total Left: BMD: 1.138 g/cm2. T-score: 1.6. Z-score: 2.9 Right: BMD: 1.193 g/cm2. T-score: 2.1. Z-score: 3.3 IMPRESSION: Normal bone density. Sohail Briscoe M.D. Diagnostic Radiologist [email or web address] Transcribed: 10:33 am DW/Dictated by: Sohail Briscoe MD @ 09/30/2024 8:42:00 AM (Electronically Signed)
== END 2024-09-29 14:52 | disposition home or self-care (01) ==
LOC: MAMMO 14:52
PROVIDERS: PCP Family Medicine; Visit Provider Family Medicine
DX: Z12.31 Encounter for screening mammogram for malignant neoplasm of breast (principal); Z78.0 Asymptomatic menopausal state
CPT/HCPCS: 77063; 77067; 77080; T1013

== ENCOUNTER 2024-10-11 07:28 | Outpatient (CLI) | payer BC, SELFPAY | END 2024-10-11 07:29 | disposition home or self-care (01) | LOC: NFLDREF 10-12 05:34 | PROVIDERS: PCP Family Medicine; Referring Provider Family Medicine; Visit Provider Family Medicine | DX: I10 Essential (primary) hypertension (principal); D51.9 Vitamin B12 deficiency anemia, unspecified; D50.9 Iron deficiency anemia, unspecified; E78.5 Hyperlipidemia, unspecified; E11.29 Type 2 diabetes mellitus with other diabetic kidney complication; R80.9 Proteinuria, unspecified; Z79.4 Long term (current) use of insulin | CPT/HCPCS: 80053; 80061; 82043; 82570; 82607 ==

== ENCOUNTER 2024-12-07 15:45 | Outpatient (RCR) | payer BC, SELFPAY ==
--- NOTE | 2024-11-16 17:06 | PT.OPEX ---
PT [place] Outpatient Eval PT [facility] Outpatient Eval Start: 11/16/24 15:39 Freq: Status: Active Protocol: Document 11/16/24 15:40 [facility] (Rec: 11/16/24 16:59 [facility] [id number]) E-signed By Jonathon Costa, PT Physical Therapy Outpatient Evaluation Insurance Information Insurance Name Blue [employer] Insurance Information/Comments [facility] Medical Diagnosis chronic upper back pain Imaging Report Information none Referring MD Dr. Michaela Benitez Subjective Preferred Name Lina Emerson presents with right upper neck pain that extends down her right shoulder and mid back. It started ~2 months ago. It may be related to the work she does during which she repeatedly reaches overhead to retrieve objects. About two months ago at work, they had her start working intermittently in the [employer] area which requires faster movements with overhead reaching and heavier items. Her pain started after that time. She reports occasional tingling into her right elbow. 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 Pt is right handed. 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 [facility]: repeated overhead reach, lift/carry, up to 25 lbs Objective Other/Pertinent Objective Posture: AROM: Cervical: Flexion: WNL * R neck/shoulder pain Extension: 60 deg * R neck/ shoulderl Sidebend : R 45 / L 40 * stretch pain R Rotation: R 70 * / L 70 (less pain R) UE: R shoulder AROM grossly WNL but with end range pain/stiffness R shoulder R shoulder strength: grossly 4 -5/10, mild pain with each movement resisted testing Special tests: R shoulder Impingement: + for Neers and H -K Palpation: cervical segmental mobility testing - mild hypomobility but non painful + TTP right u trap, medial scap border Functional Test Performed & Score overhead reach: + pain right shoulder reach out to side: + pain right shoulder Assessment Assessment/Impression 64 year old female presents with right neck/shoulder/ scapular pain x 2 months, onset after she started working occasionally in the [employer] room at [facility]. This room requires faster and repetitive overhead reach and carrying heavier loads, up to 25 lbs. Idania demonstrates fairly strong right shoulder w/ MMT but mild discomfort with testing in each direction. Cervical AROM is mildly limited into ext and sidebend, but no c/o radiculopathy/ paraesthesias into right UE. Impingement testing reproduced pain, but it appeared to be more related to shoulder stretching. At this time, I suspect Idania' s pain is related to daily repetitive overhead reach and lifting with her right UE causing soft tissue/muscle strain on her right side. I do not suspect RTC tear or neck injury. Idania responded positively to initial PT session of skilled manual therapy. I recommend cont skilled PT for HEP progression and continued skilled PT along with body mechanics and postural education. I recommend that Idania be provided a medical note exempting her from working in the [employer] room as this appears to be the cause of her current right sided neck/ shoulder/upper back symptoms. 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) with right neck /shoulder pain max of 4/10 Coordination/Communication With Referral Source Treatment Plan/Direct Interventions Manual Therapy,Neuromuscular Re-ed,Self-Care/Home Management,Therapeutic Activities,Therapeutic Exercises Direct Interventions Clarification STM to right neck/shoulder/ Comments scapula mm, progressive postural strengthening Frequency/Duration ~1x/week for 6-8 weeks Patient Will Be Discharged From Therapy Independent w/HEP, Independently Progressing Evaluation Billing Untimed Code Treatment Minutes 30 Complexity Moderate Certification Information Initial Certification Date 11/16/24 Ending Certification Date 02/08/25 Provider Signature Required Yes Provider Signature Shows Agreement With POC & Medical Necessity Physician NPI Number Write NPI# Here Physician Comment/Change : Physician Signature & Date Requested Please Sign/Date Here
== END 2025-04-06 23:59 | disposition home or self-care (01) ==
PROVIDERS: PCP Family Medicine; Visit Provider Family Medicine
DX: M54.9 Dorsalgia, unspecified (principal); G89.29 Other chronic pain; M25.511 Pain in right shoulder; M54.2 Cervicalgia; Z51.89 Encounter for other specified aftercare
CPT/HCPCS: 97110; 97140; 97162; 97530; T1013

== ENCOUNTER 2024-12-28 16:27 | Outpatient (CLI) | payer BC, SELFPAY | END 2024-12-28 16:28 | disposition home or self-care (01) | PROVIDERS: PCP Family Medicine | DX: R30.0 Dysuria (principal); R81 Glycosuria; N89.8 Other specified noninflammatory disorders of vagina | CPT/HCPCS: 83036 ==

== ENCOUNTER 2024-12-29 15:18 | Outpatient (CLI) | payer BC, SELFPAY | END 2024-12-29 15:19 | disposition home or self-care (01) | LOC: NFLDREF 15:20 | PROVIDERS: PCP Family Medicine; Visit Provider Family Medicine | DX: R30.0 Dysuria (principal) | CPT/HCPCS: 87086 ==

== ENCOUNTER 2025-05-19 06:03 | Emergency (ER) | payer BC, SELFPAY ==
--- OUTSIDE RECORDS SUMMARY | 2025-05-19 06:06 | XMS_ITS | Clinical Summary ---
Author Organization [facility] Address [address] [place] [id number] Care Team Providers Care Aerospace Project Manager Name Role Phone Pcp, No Primary Care Provider Unavailabl e Allergies Active Allergy Reactions Criticality Noted Date Comments Naproxen GI Upset,Intolerance-Can't Take 01/20 Medications ASPIRIN 81 MG TAB take 1 tablet (81mg) by oral route once daily 03/10/20 08 Active lancets (ACCU-CHEK FASTCLIX) Test 2-3 times per day. 20 Each prn 05/17/20 13 Active insulin needles, disposable, (LITE TOUCH INSULIN PEN NEEDLES) 31 X 5/16 Indications:Type 2 diabetes mellitus with hyperglycemia (HC) For administering insulin at home. For lantus solostar disposable pen device 100 Each 3 02/10/20 15 Active Diabetic ShoeIndications:T ype 2 diabetes mellitus with hyperglycemia (HC) As directed. 1 Each 0 12/13/19 16 Active insulin syringe-needle U-100 (BD INSULIN SYRINGE ULTRA-FINE) 0.3 mL 31 gauge x 15/64 syrgIndications:T ype 2 diabetes mellitus without complication, without long-term current use of insulin (HC) As directed. For insulin administration 100 Syringe 12 04/24/20 16 Active blood sugar diagnostic (ACCU-CHEK SMARTVIEW TEST STRIP) stripIndications: Type 2 diabetes mellitus with hyperglycemia, with long-term current use of insulin (HC) Test 2-3 times per day. 100 Each 12 05/08/20 16 Active acetaminophen (TYLENOL) 325 mg tablet Take by mouth every 4 hours if needed. Max acetaminophen dose: 4000mg in 24 hrs. 0 09/04/19 17 Active glipiZIDE (GLUCOTROL) 10 mg tabletIndications :Type 2 diabetes mellitus without complication, unspecified fpc insulin use status (HC) Take 1 tablet by mouth 2 times daily before meals. 180 tablet 2 09/04/19 17 Active insulin NPH human recomb (NOVOLIN N) 100 unit/mL susp injectionIndicati ons:Type 2 diabetes mellitus without complication, unspecified fpc insulin use status (HC) Inject 10 Units subcutaneous every 12 hours. 1 Vial 12 09/04/19 17 Active metFORMIN (GLUCOPHAGE) 1,000 mg tabletIndications :Type 2 diabetes mellitus without complication, unspecified long term care administrator insulin use status (HC) Take 1 tablet by mouth 2 times daily with meals. 180 tablet 2 09/04/19 17 Active lisinopril (PRINIVIL; ZESTRIL) 30 mg tabletIndications :HTN (hypertension) Take 1 tablet by mouth once daily. Note dose change 90 tablet 2 09/04/19 17 Active Active Problems Problem Noted Date Diagnosed [...] replace inactive record Dysthymic disorder 08/12/2008 Immunizations Immunization Administration Dates Next Due HepA-HepB (Twinrix) 04/12/2015,03/04/2014,2013 [...] drink = 0.6 oz pur e alcohol) Comments No Sex and Gender Information Value Date Recorded Sex Assigned at Not on file Legal Sex Female 5:45 AM DIRECTOR PROJECT MANAGEMENT Gender Identity Not on file Sexual Orientation Not on file Obstetrics History Para Term AB IAB SAB Ectopic Multiple Livin g Live Births 3 4 Date Outcome GA Total Labor Labor/2nd/3rd Weight Sex Type Anes PTL Kayli A1 A5 Name Clin Last Filed Vital Signs Vital Sign Reading Time Taken Comments Blood Pressure 167/83 06/29/2023 5:54 PM DIRECTOR PROJECT MANAGEMENT Pulse 62 06/29/2023 5:54 PM DIRECTOR PROJECT MANAGEMENT Temperature 36.3 C (97.3 F) 06/29/2023 5:54 PM DIRECTOR PROJECT MANAGEMENT Respiratory Rate 18 06/29/2023 5:54 PM DIRECTOR PROJECT MANAGEMENT Oxygen Saturation 98% 06/29/2023 5:54 PM DIRECTOR PROJECT MANAGEMENT Inhaled Oxygen Concentration - - Weight 59.9 kg (132 lb) 06/29/2023 5:53 PM DIRECTOR PROJECT MANAGEMENT Height 149.4 cm (4' 10.82) 04/23/2017 10:16 AM CDT Body Mass Index 26.83 04/23/2017 10:16 AM CDT Plan of Treatment Health Maintenance Due Date Last Done Comments Hepatitis C screening for ag e 18-79 1976 Pneumococcal series for age 50+ (1 of 2 - PCV) 1977 Zoster (shingles) series for age 50+ (1 [...] exists DEXA/DXA scan for age 65+ 10/26/2023 Tetanus booster 11/24/2023 11/23/2013 Influenza Vaccine (#1) 2025 6, 04/12/2015, 04/06/2014, Additional history exists RSV vaccine for adults or (1 - 1-dose 75+ series) 2033 Hepatitis B series for 19+ Completed 04/12, 03/04/2014, 11/23/2013 Goals Goal Patient Goal Type Associated [...] - 199 mg/dL 11/17/2017 3:[address] [facility] TRIGLYCERIDES 163(H) <150 mg/dL 11/17/2017 3:48 PM CDT [facility] HDL CHOLESTEROL 39(L) >40 mg/dL 8 3:[address] [facility] NON-HDL CHOLESTEROL 123 <145 mg/dl 11/17/2017 3:48 PM CDT [facility] CHOL/HDL RATIO 4.15 <4.50 11/17/2017 3:[address] [facility] LDL CHOLESTEROL 90 <=130 mg/dL 11/17/2017 3:48 PM CDT [facility] PROVIDER ORDERED STATUS RANDOM 11/17/2017 3:48 PM CDT [facility] Blood BLOOD SPECIMEN / Unknown Venipuncture / Unknown 11/17/2017 8:28 AM CDT 11/17/2017 8:28 AM CDT us Porsha Turner DO CHEMISTRY Final Resul t [facility] [address] [place] [address], [place] * XR MAMMO BILAT SCREENING (04/22/2017 3:05 PM CDT) Anatomical Region Laterality Modality BREASTS, Breast Left, Breast Right Bilateral Mammography Impressions 04/23/2017 12:29 PM CDT There is no radiographic evidence for malignancy. Recommend annual mammograms. A lay language report of this examination will be provided to the patient. MAMMOGRAM ASSESSMENT: ACR 2 Benign Narrative 04/23/2017 12:29 PM CDT XR MAMMO BILAT SCREENING [[id number]] CLINICAL HISTORY: This is an asymptomatic 56 y.o. patient. INDICATION FOR EXAM: Mammogram Screening. TECHNIQUE: CC & MLO views were obtained. This digital study was evaluated with the assistance of Computer-Aided Detection. COMPARISON FILMS: Yes 04/16/16 [facility] 04/12/15 [facility] FINDINGS: Mammographically, the breast tissue has scattered fibroglandular densities. No suspicious masses or microcalcifications. Benign appearing calcifications within both breasts and Intramammary lymph node within right breast. us Tammy Deal COMBAT ENGINEER MAMMO F inal Result from Last 3 Months or Most Recently Relevant to Health Maintenance Insurance [facility] NON-[place]-ITS [facility] * Guarantor: [employer] Account Type Relation to Patient Date of Phone Billing Address [facility] [address] ATT[address] KITTY BURNS [address] [place] [id number] Care Teams Aerospace Project Manager Relationship Specialty Start Date End Date Pcp, No . PCP - General 06/26/18
[2025-05-19 06:40] VITALS: BP 182/81; PULSE 64; RESP 18; TEMP 36.7; O2SAT 98; BMI 25.0
--- NOTE | 2025-05-19 07:06 | ED_ITS ---
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 Patient reports that last night around 7:00 p.m. she was trying to help her grandson large toe walk. While playing with her grandson she actually tripped over standard and fell. Patient reports that she fell forward and hit her head on the coffee table. Patient reports that she may have lost consciousness for short period of time, patient is not on chronic anticoagulation. Patient complains of head pain as well as neck pain that is worse on the right side. Patient reports unable to sleep due to the discomfort. Last took Tylenol around 1:30 a.m.. Denies any vision changes, weakness, dizziness, chest pain, shortness comfort, paresthesias, no other complaints. Related Data Previous Rx's ?Medication ?Instructions ?Recorded blood sugar diagnostic (OneTouch #100 ea 10/08/22 Ultra Test strips) lancets 28 gauge (Acti-Willi #100 ea 01/07/24 Lancets) pen needle, diabetic 32 gauge x #1,200 ea 01/07/24 (BD Ultra-Fine Cynthia Pen Needle) amlodipine 5 mg tablet 5 mg PO DAILY #90 tabs 10/12 cyanocobalamin (vitamin B-12) 3,000 mcg (3 x 1,000 mcg ) PO QDAY 10/12/24 1,000 mcg tablet (Vitamin B-12) #270 tabs empagliflozin 10 mg tablet 10 mg PO QAM #90 tabs 10/12 (Jardiance) insulin lispro 100 unit/mL 10 unit (0.1 mL) subcut BID #15 mL 10/12/24 subcutaneous pen lisinopril 40 mg tablet 40 mg PO DAILY #90 tabs 09/19 12/12 metformin 1,000 mg tablet 1,000 mg PO BIDWMEAL #180 ta bs 10/12/24 simvastatin 10 mg tablet 10 mg PO QHS #90 tabs aspirin 81 mg tablet,delayed 81 mg PO QDAY #90 tabs 04 /14/25 release ibuprofen 600 mg tablet 600 mg PO TID #15 tabs 01/28 omeprazole 20 mg capsule,delayed 20 mg PO QDAY gastric protection 01/28/25 release #20 caps cyclobenzaprine 5 mg tablet 5 mg PO QHS PRN muscle spa sm #30 04/13/25 tabs Allergies Allergy/AdvReac Type Severity Reaction Status Date / Time ibuprofen AdvReac Mild Abdominal Verified 05/19/25 06:43 Pain Review of Systems Narrative: Past medical history, past surgical history, medications, allergies, family history, and social history were reviewed with the patient. No additional pertinent items. A medically appropriate review of systems was performed with pertinent positives and negatives noted in HPI, all other systems negative. [facility] Medical History Kosovan speaking patient DDD (degenerative disc disease) (01/28/25) History of bone density study (09/30/24) ?Z92.89 - Personal history of other medical treatment (ICD-10) Diabetic retinopathy of both eyes associated with type 2 diabetes mellitus (08/2024) ?E11.319 - Type 2 diabetes mellitus with unspecified diabetic retinopathy without macular edema (ICD-10) Anemia, B12 deficiency (~10/10/23) ?D51.9 - Vitamin B12 deficiency anemia, unspecified (ICD-10) Elevated ferritin ?R79.89 - Other specified abnormal findings of blood chemistry (ICD-10) Chronic atrophic gastritis ?K29.40 - Chronic atrophic gastritis without bleeding (ICD-10) Subconjunctival hemorrhage of right eye ?H11.31 - Conjunctival hemorrhage, right eye (ICD-10) Macular degeneration ?H35.30 - Unspecified macular degeneration (ICD-10) Type 2 diabetes mellitus ?E11.9 - Type 2 diabetes mellitus without complications (ICD-10) Dyslipidemia ?E78.5 - Hyperlipidemia, unspecified (ICD-10) Concussion ?S06.0X9A - Concussion with loss of consciousness of unspecified duration, initial encounter (ICD-10) Closed head injury ?S09.90XA - Unspecified injury of head, initial encounter (ICD-10) Urinary tract infection ?N39.0 - Urinary tract infection, site not specified (ICD-10) Strain of left shoulder ?S46.912A - Strain of unspecified muscle, fascia and tendon at shoulder and upper arm level, left arm, initial encounter (ICD-10) Pyelonephritis ?N12 - Tubulo-interstitial nephritis, not specified as acute or chronic (ICD- 10) Surgical History History of cataract extraction with lens replacement (04/2022) History of hysterectomy (2008) ?Z90.710 - Acquired absence of both cervix and uterus (ICD-10) History of colonoscopy with polypectomy ?Z98.890 - Other specified postprocedural states (ICD-10) ?Z86.010 - Personal history of colonic polyps (ICD-10) History of section (1985) ?Z98.891 - History of uterine scar from previous surgery (ICD-10) Family History Colon cancer Sister, Onset Age: 43 Type 2 diabetes mellitus Sister Mother Father Social History Narrative: She is . 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 Originally from [place]. 4 children Lifetime nonsmoker Does not drink alcohol exercise walking 5/week, 30 min What is your current living situation?: I presently have a place to live Problems where you live: oven or stove not working In the past 12 months, utilities in danger of being shut off: no In past 12 months, lack of transportation kept you from medical appts, meetings, work, or getting things needed for daily living: no In the past 12 mos, have been you worried that your food would run out before you had money to buy more?: never true In the past 12 mos, the food you bought just didn't last and you didn't have money to buy more?: never true Smoking Status: Never smoker How often do you have a drink containing alcohol: never How often do you have six or more drinks on one occasion: Never AUDIT-C Alcohol total score: 0 Non-prescribed substance use: denies use How often does anyone, including family, friends and others, physically hurt you : never How often does anyone, including family, friends and others, insult or talk down to you: never How often does anyone, including family, friends and others, threaten you with harm: never How often does anyone, including family, friends and others, scream or curse at you: never Health Related Social Needs: Inadequate housing (Z59.1) Exam Narrative: Exam Narrative: General: Afebrile, no acute distress HEENT: Normocephalic, atraumatic, no evidence of ecchymosis, hematoma, lacerations,PERRL, EOMI, conjunctiva normal. MMM Neck: supple, +diffuse neck TTP mostly right paraspinal region and right upper back Cardio: regular rate. regular rhythm Resp: Normal work of breathing, no respiratory distress, lungs clear bilaterally, no wheezing, rhonchi, rales Chest/Back: no visual signs of trauma, no midline tenderness, no CVA tenderness Abdomen: soft, non distension, no tenderness, no peritoneal signs Neuro: alert and fully oriented. CN II-XII intact.Normal strength and sensation in all extremities. MSK: no deformities. Normal range of motion Integumentary/Skin: no rash visualized, normal color Psych: normal affect, normal behavior Const: Vital Signs, click to edit/add: Vital Signs - 24 hr 05/19/25 06:40 Temperature 98.0 F Pulse Rate [Pulse Oximeter] 64 Respiratory Rate 18 Blood Pressure [Ri ght Upper Arm] 182/81 H Pulse Oximetry 98 Oxygen Delivery Me thod Room Air Course Vital Signs Vital signs: Initial Vital Signs Temperature 98.0 F 05/19/25 06:40 Temperature Source Temporal Artery Scan 05/19/25 06:40 Pulse Rate 64 05/19/25 06:40 Respiratory Rate 18 05/19/25 06:40 Blood Pressure 182/81 H 05/19/25 06:40 Blood Pressure Mean 114 H 05/19/25 06:40 Blood Pressure Position Sitting 05/19/25 06:40 Pulse Oximetry 98 05/19/25 06:40 Oxygen Delivery Method Room Air 05/19/25 06:40 Vital Signs Temperature 98.0 F 05/19/25 06:40 Pulse Rate 64 05/19/25 06:40 Respiratory Rate 18 05/19/25 06:40 Blood Pressure 182/81 H 05/19/25 06:40 Pulse Oximetry 98 05/19/25 06:40 Oxygen Delivery Method Room Air 05/19/25 06:40 Temperature 98.0 F 05/19/25 06:40 Pulse Rate 64 05/19/25 06:40 Respiratory Rate 18 05/19/25 06:40 Blood Pressure 182/81 H 05/19/25 06:40 Pulse Oximetry 98 05/19/25 06:40 Oxygen Delivery Method Room Air 05/19/25 06:40 Medications Administered Medications: Discontinued Medications Generic Name Dose Route Start Last Admin Trade Name Freq PRN Reason Stop Dose Admin Ibuprofen 600 mg 05/19/25 08:37 05/19/25 08:52 Ibuprofen 200 Mg Tablet PO 05/19/25 08:38 Not Given ONCE ONE MDM - Fall MDM Narrative Medical decision making narrative: Idania is a 64-year-old female who presents the emergency department for evaluation of a fall. Upon arrival patient is nontoxic appearing, afebrile, no distress. Patient here with close head injury, fall, head pain neck pain. Patient is not on chronic anticoagulation. Patient took Tylenol prior to arrival. Given patient's age, reported likely LOC, will proceed with CT imaging. I personally reviewed interpreted CT have which demonstrates no acute fracture, intracranial hemorrhage. CT cervical spine with degenerative changes, no evidence of cervical spine fracture. Thyroid gland calcifications which recommend outpatient thyroid ultrasound. On re-evaluation patient continues review resting comfortably, no distress. I discussed results with patient and family. At this time plan for discharge home with continued supportive care, Tylenol, ibuprofen, close outpatient follow-up. Return precautions discussed. Patient and daughter in-law understand & agrees t he plan. Medical Records Attestation: I reviewed the patient's medical records. Imaging Data CT scan - head: Attestation: I have reviewed the pertinent imaging results. Radiologist's impression: CT head without contrast. COMPARISON: None. FINDINGS: CSF spaces: Within normal limits for age. Brain parenchyma: The nichols-white differentiation is normal. No sign of mass, hemorrhage, or midline shift. Diffuse cerebral atrophy. Skull base and calvarium: The visualized paranasal sinuses and mastoid air cells demonstrate no acute or significant findings. The visualized orbits are grossly unremarkable. No skull fractures. Atherosclerosis. IMPRESSION: 1. No calvarial fracture or intracranial bleed. 2. Mild cerebral atrophy. CT- Other: Attestation: I have reviewed the pertinent imaging results. Radiologist's impression: FINDINGS: No evidence of fracture or suspicious bony lesions. Disc Spaces Occipital-C2: Unremarkable. C2/3: Unremarkable. C3/4: Unremarkable. C4/5: Facet hypertrophy causes minimal right foraminal stenosis. C5/6: Facet hypertrophy and anterior osteophytes without significant stenosis. C6/7: Unremarkable. C7/T1: Facet hypertrophy without significant stenosis. Other: Atherosclerosis. Calcification within the thyroid gland. IMPRESSION: 1. Minimal degenerative changes cervical spine without evidence of cervical spine fracture. 2. Thyroid gland calcifications. Suggest follow-up outpatient thyroid ultrasound for further characterization Discharge Plan Discharge Clinical Impression: Closed head injury, Neck pain, Fall Patient Disposition: Home, Self-Care Condition: Stable Additional Instructions: Please follow-up with your primary care provider in the next 3-5 days for further evaluation and follow-up. Please alternate taking Tylenol ibuprofen every 6 hours as needed for pain. Return to the emergency department if any worsening symptoms. It was a pleasure taking care of you today. We hope you feel better soon. Prescriptions: No Action amlodipine 5 mg tablet 5 mg PO DAILY Qty: 90 3RF cyanocobalamin (vitamin B-12) [Vitamin B-12] 1,000 mcg tablet 3,000 mcg PO QDAY Qty: 270 3RF Jardiance 10 mg tablet 10 mg PO QAM Qty: 90 3RF insulin lispro 100 unit/mL insulin pen 10 unit subcut BID Qty: 15 12RF lisinopril 40 mg tablet 40 mg PO DAILY Qty: 90 3RF metformin 1,000 mg tablet 1,000 mg PO BIDWMEAL Qty: 180 3RF simvastatin 10 mg tablet 10 mg PO QHS Qty: 90 3RF ibuprofen 600 mg tablet 600 mg PO TID Qty: 15 0RF Rx Instructions: 1 tab po tid with food x5 days omeprazole 20 mg capsule,delayed release(DR/EC) 20 mg PO QDAY Qty: 20 0RF (DME) OneTouch Ultra Test Strip See Rx Instructions .Route Qty: 100 5RF Rx Instructions: As directed (DME) lancets [Acti-Willi Lancets] 28 gauge misc See Rx Instructions .Route Qty: 100 6RF Rx Instructions: As directed (DME) pen needle, diabetic [BD Ultra-Fine Cynthia Pen Needle] 32 gauge x needle See Rx Instructions .ROUTE .MEDSUPPLY Qty: 1200 1RF Rx Instructions: As directed, test twice a day aspirin 81 mg tablet,delayed release (DR/EC) 81 mg PO QDAY Qty: 90 1RF cyclobenzaprine 5 mg tablet 5 mg PO QHS PRN (Reason: muscle spasm) Qty: 30 0RF Rx Instructions: 1 tablet at night as needed for muscle spasm Follow Up/Referrals: Lilia Benitez MD [Primary Care Provider, Family Practice] Stand Alone Forms: [employer] Info Instructions
--- NOTE | 2025-05-19 07:28 | CRLHL7_ITS ---
For Patients: As a result of the Century Cures Act, medical imaging exams and procedure reports are released immediately into your electronic medical record. You may view this report before your referring provider. If you have questions, please contact your health care provider. INDICATION: Fall, hit top of head, neck pain. TECHNIQUE: CT cervical spine without contrast. COMPARISON: None FINDINGS: No evidence of fracture or suspicious bony lesions. Disc Spaces Occipital-C2: Unremarkable. C2/3: Unremarkable. C3/4: Unremarkable. C4/5: Facet hypertrophy causes minimal right foraminal stenosis. C5/6: Facet hypertrophy and anterior osteophytes without significant stenosis. C6/7: Unremarkable. C7/T1: Facet hypertrophy without significant stenosis. Other: Atherosclerosis. Calcification within the thyroid gland. IMPRESSION: 1. Minimal degenerative changes cervical spine without evidence of cervical spine fracture. 2. Thyroid gland calcifications. Suggest follow-up outpatient thyroid ultrasound for further characterization. Please note that all CT scans at this facility use dose modulation, iterative reconstruction, and/or weight-based dosing when appropriate to reduce radiation dose to as low as reasonably achievable. Dictated by Remington Yen MD @ 05/19/2025 8:11:43 AM (Electronically Signed)
--- NOTE | 2025-05-19 07:28 | CRLHL7_ITS ---
For Patients: As a result of the Century Cures Act, medical imaging exams and procedure reports are released immediately into your electronic medical record. You may view this report before your referring provider. If you have questions, please contact your health care provider. INDICATION: Fall, hit top of head TECHNIQUE: CT head without contrast. COMPARISON: None. FINDINGS: CSF spaces: Within normal limits for age. Brain parenchyma: The nichols-white differentiation is normal. No sign of mass, hemorrhage, or midline shift. Diffuse cerebral atrophy. Skull base and calvarium: The visualized paranasal sinuses and mastoid air cells demonstrate no acute or significant findings. The visualized orbits are grossly unremarkable. No skull fractures. Atherosclerosis. IMPRESSION: 1. No calvarial fracture or intracranial bleed. 2. Mild cerebral atrophy. Please note that all CT scans at this facility use dose modulation, iterative reconstruction, and/or weight-based dosing when appropriate to reduce radiation dose to as low as reasonably achievable. Dictated by Remington Yen MD @ 05/19/2025 8:05:33 AM (Electronically Signed)
== END 2025-05-19 09:01 | disposition home or self-care (01) ==
PROVIDERS: Emergency Provider Emergency Medicine; PCP Family Medicine
DX: S09.90XA Unspecified injury of head, initial encounter (principal); M54.2 Cervicalgia; W01.190A Fall on same level from slipping, tripping and stumbling with subsequent striking against furniture, initial encounter
CPT/HCPCS: 70450; 72125; 99284; 99285; A9270